=== PATIENT | female | born 1960 | race Two or more races ===

== ENCOUNTER 2020-12-11 16:04 | Emergency (ER) | payer OTHER ==
[~2020-12-11] VITALS: Ht 160 cm; Wt 56.2 kg
[2020-12-11 17:19] LABS: BASOPHIL 0.1 % (0-2); EOSINOPHIL 0 % (0-5); HCT 41.4 % (37.0-47.0); HGB 13.6 g/dl (12.5-16.0); LYMPHOCYTE 6.4 % (15-48); MCH 30.4 pg (25.0-31.0); MCHC 32.9 g/dL (32.0-36.0); MCV 92.6 fL (78.0-100.0); MONOCYTE 2.1 % (0-12); MPV 10.6 fL (6.0-9.5); NRBC 0; PLT 201 K/uL (150-400); RBC 4.47 M/uL (4.20-5.40); RDW 13.6 % (11.5-14.0); WBC 11.5 K/uL (4.0-10.5)
[2020-12-11 17:23] LABS: NEUTROPHIL 90.5 % (41-80)
[2020-12-11 17:27] LABS: INR 1.02 (0.9-1.2); PROTHROMBIN TIME 12.8 SECONDS (11.8-13.4); PTT 27.8 SECONDS (24.4-34.7)
[2020-12-11 17:38] LABS: ALBUMIN 3.2 g/dL (3.4-5.0); BILIRUBIN - TOTAL 0.2 mg/dL (0.2-1.0); BUN/CREAT RATIO (CALC) 14.8 RATIO; CREATININE 0.81 mg/dL (0.51-0.95); GLOBULIN (CALCULATION) 3.8 g/dL; POTASSIUM 4.4 mmol/L (3.5-5.1)
== END 2020-12-11 21:30 | disposition home or self-care (01) ==
LOC: FER 16:04
PROVIDERS: Emergency Medicine
DX: U07.1 COVID-19 (principal); Z23 Encounter for immunization; Z91.041 Radiographic dye allergy status
CPT/HCPCS: 36415; 71045; 80053; 84484; 85025; 85379; 85610; 85730; J7030; M0243; Q0244